=== PATIENT | female | born 1980 | race American Indian/Alaskan Native ===

== ENCOUNTER 2017-06-06 07:00 | Inpatient (IN) | payer OTHER ==
--- NOTE | 2017-06-06 12:52 | Anesthesia Consultation ---
Anesthesia Consult and Med Hx Date of service: 06/06/17 - Airway Anesthetic Teeth Evaluation: Good ROM Head & Neck: Adequate Mental/Hyoid Distance: Adequate Mallampati Class: Class II Intubation Access Assessment: Good - Pulmonary Exam CTA: Yes - Cardiac Exam Cardiac Exam: No Murmur - Pre-Operative Health Status ASA Pre-Surgery Classification: ASA2 Proposed Anesthetic Plan: General Nerve Block: tap - Pulmonary Hx Smoking: Yes (past hx) Hx Sleep Apnea: Yes (No CPAP) - Central Nervous System Hx Psychiatric Problems: No - Hematic Hx Sickle Cell Disease: Yes (Trait only) - Other Systems Hx Alcohol Use: Yes (occas) Hx Cancer: No
[2017-06-06 12:55] LABS: Basophils # (Auto) 0.2 K/mm3 (0.0-0.1); Basophils % (Auto) 2.1 % (0.0-1.8); Eosinophils # (Auto) 0.1 K/mm3 (0.0-0.4); Eosinophils % (Auto) 1.2 % (0.0-4.3); Hematocrit 32.1 % (30.3-42.9); Hemoglobin 9.9 gm/dl (10.1-14.3); Lymphocytes # (Auto) 2.1 K/mm3 (1.2-5.4); Lymphocytes % (Auto) 30.2 % (13.4-35.0); Mean Corpuscular HGB Conc 31 % (30-34); Monocytes # (Auto) 0.5 K/mm3 (0.0-0.8); Monocytes % (Auto) 7.7 % (0.0-7.3); Platelet Count 359 K/mm3 (140-440); Red Blood Count 5.25 M/mm3 (3.65-5.03); Red Cell Distribution Width 19.4 % (13.2-15.2)
[2017-06-06 12:58] LABS: Mean Corpuscular Hemoglobin 19 pg (28-32); Mean Corpuscular Volume 61 fl (79-97)
[2017-06-07] MEDS ORDERED: Vasostrict IV ONE
[2017-06-07] MEDS ORDERED: NACL 0.9% IV ONE
[2017-06-07] MEDS ORDERED: NACL BACTERIOSTATIC INFILTRATI ONE (09:35)
--- NOTE | 2017-06-07 09:54 | History and Physical Report ---
History of Present Illness Date of examination: 06/07/17 Date of admission: 06/07/17 09:12 Chief complaint: Prolonged heavy vaginal bleeding History of present illness: Pt is a 36yo BF LMP 05/19/17 presents for surgical evaluation of symptomatic uterine fibroids. Pelvic u/s showed an enlarged uterus 12.3 x 9 x 8cm with 6 fibroids. 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 Family/Genetic History: diabetes, hypertension Social history: no significant social history, Medications and Allergies Allergies Allergy/AdvReac Type Severity Reaction Status Date / Time No Known Allergies Allergy Unverified 06/01/17 16:03 Home Medications Medication Instructions Recorded Confirmed Last Taken Type Ibuprofen 800 mg PO PRN PRN 06/01/17 06/01/17 Unknown History Active Meds: Active Medications Famotidine (Pepcid) 20 mg PO PREOP NR Stop: 06/07/17 21:00 Hydromorphone HCl (Dilaudid) 0.5 mg IV Q10MIN PRN PRN Reason: Pain , Severe (7-10) Stop: 06/07/17 18:00 Lactated Ringer's (Lactated Ringers) 1,000 mls @ 100 mls/hr IV DIRECT HEBER Midazolam HCl (Versed) 2 mg IV PREOP NR Stop: 06/07/17 23:59 Ondansetron HCl (Zofran) 4 mg IV ONCE PRN PRN Reason: Nausea And Vomiting Stop: 06/07/17 18:00 Review of Systems All systems: negative - Vital Signs Vital signs: Vital Signs Temp Pulse Resp BP 98.2 F 80 18 138/80 06/06/17 12:30 06/06/17 12:30 06/06/17 12:30 06/06/17 12:30 Temp Pulse Resp BP Pulse Ox 98.2 F 80 18 138/80 06/06/17 12:30 06/06/17 12:30 06/06/17 12:30 06/06/17 12:30 - Physical Exam Breasts: Positive: deferred Cardiovascular: Regular rate Lungs: Positive: Clear to auscultation Abdomen: Positive: normal appearance Genitourinary (Female): Positive: normal external genitalia Uterus: Positive: enlarged Extremities: Positive: normal Results Result Diagrams: 06/06/17 12:35 Abnormal lab results 06/06/17 Range/Units 12:35 RBC 5.25 H (3.65-5.03) M/mm3 Hgb 9.9 L (10.1-14.3) gm/dl MCV 61 L (79-97) fl MCH 19 L (28-32) pg RDW 19.4 H (13.2-15.2) % [place] % (Auto) 7.7 H (0.0-7.3) % Baso % (Auto) 2.1 H (0.0-1.8) % Baso # 0.2 H (0.0-0.1) K/mm3 All other labs normal. Ultrasound: report reviewed Assessment and Plan - Patient Problems (1) Uterine fibroid Onset Date: 06/07/17 Current Visit: Yes Status: Acute Qualifiers: Uterine leiomyoma location: intramural and submucous Qualified Code(s): D25.1 - Intramural leiomyoma of uterus; D25.0 - Submucous leiomyoma of uterus Plan to address problem: A: Symptomatic uterine fibroids Menorrhagia - most likely due to uterine fibroids Anemia - due to menorrhagia P: Admit for an Abdominal Myomectomy (2) Menorrhagia with irregular cycle Onset Date: 06/07/17 Current Visit: Yes Status: Acute
[2017-06-07] MEDS ORDERED: PEPCID PO NR (10:00)
[2017-06-07] MEDS ORDERED: LACTATED RINGERS 1,000 ML IV SCH (10:00)
[2017-06-07] MEDS ORDERED: VERSED IV NR ×2 (10:00→13:00)
[2017-06-07] MEDS ORDERED: ZOFRAN IV PRN (10:00)
[2017-06-07] MEDS ORDERED: ANCEF/STERILE WATER 2 GM/20 ML 2 GM/20 ML SYRINGE IV NR (10:30)
[2017-06-07] MEDS ORDERED: DIPRIVAN 10 MG/ML IV ONE (11:30)
[2017-06-07] MEDS ORDERED: SUBLIMAZE ONE (11:31)
[2017-06-07] MEDS ORDERED: ACD-A 0 ML IV ONE (12:06)
[2017-06-07] MEDS ORDERED: NACL 0.9% 100 ML ONE (12:07)
[2017-06-07] MEDS ORDERED: METHYLENE BLUE ONE (12:07)
[2017-06-07] MEDS ORDERED: Vasostrict ONE (12:07)
--- NOTE | 2017-06-07 12:20 | Anesthesia Day of Surgery ---
Anesthesia Day of Surgery - Day of Surgery Patient Examined: Yes Patient H&P Reviewed: Yes Patient is NPO: Yes
--- NOTE | 2017-06-07 12:20 | Anesthesia Consultation ---
Anesthesia Consult and Med Hx Date of service: 06/07/17 - Airway Anesthetic Teeth Evaluation: Good ROM Head & Neck: Adequate Mental/Hyoid Distance: Adequate Mallampati Class: Class III Intubation Access Assessment: Good - Pulmonary Exam CTA: Yes - Cardiac Exam Cardiac Exam: RRR - Pre-Operative Health Status ASA Pre-Surgery Classification: ASA3 Proposed Anesthetic Plan: General - Pulmonary Hx Smoking: Yes (past hx) Hx Sleep Apnea: Yes (No CPAP) - Central Nervous System Hx Psychiatric Problems: No - Hematic Hx Sickle Cell Disease: Yes (Trait only) - Other Systems Hx Alcohol Use: Yes (occas) Hx Cancer: No
[2017-06-07] MEDS ORDERED: XYLOCAINE MPF 2% ONE (13:04)
[2017-06-07] MEDS ORDERED: ZOFRAN ONE (13:04)
[2017-06-07] MEDS ORDERED: ROBINUL ONE (13:04)
[2017-06-07] MEDS ORDERED: NEOSTIGMINE ONE (13:04)
[2017-06-07] MEDS ORDERED: ZEMURON IV ONE (13:04)
--- NOTE | 2017-06-07 14:53 | Operative Report ---
Operative Report Operative Report: Date of procedure: 06/07/2017 Pre-operative diagnosis: 1. Symptomatic uterine fibroids 2. Menorrhagia 3. Anemia due to chronic blood loss Post-operative diagnosis: Same Procedure name(s): Abdominal myomectomy Surgeon: Tyrese Herron MD Bee Breeder: None Anesthesia: Gen. endotracheal intubation EBL: 400 mL's Findings: A 12-14 week size multi-myomatous uterus. Edematous fallopian tubes bilaterally. Bilaterally cystic ovaries. Procedure: After the patient was correctly identified, she was prepped and draped in the usual sterile fashion and placed in the dorsolithotomy position. The skin knife was used to make a transverse skin incision, and the incision extended down to layer of fascia. It was nicked in the midline and extended laterally using the Bovie cautery. The rectus muscle was dissected off the rectus fascia both superiorly and inferiorly. The rectus bellies in the midline and the peritoneum was entered under direct visualization. Exploration of the pelvic organs found the uterus to be 12-14 weeks' size with multiple fibroids, with small fibroids within the proximal portion of the left fallopian tube. Both fallopian tubes also edematous, and ovaries appeared to be normal with a few small cysts. Next the bowels were packed back, and the uterus was lifted from the pelvic cavity. Pitressin solution was used to infiltrate the serosal layer overlying the fibroids, and the Bovie was then used to incise the serosal layer into the myometrium, and several fibroids removed using both sharp and blunt dissection. The largest fibroid was approximately 5 x 5 cms, the smallest about 1 cm, and approximately 12 fibroids removed in this fashion and sent to pathology. The uterine defect was then obliterated using several sutures of 2-0 Monocryl suture, and the serosa was re- approximated using 2-0 Monocryl suture in running interlocking fashion. The 4 serosal incisions were closed in similar fashion. Copious amounts of irrigation was then performed, and then both Tisseel sealant was used to achieve excellent hemostasis. Interceed was then placed over the serosal layer. At this point the procedure was considered complete. The uterus was returned to his normal anatomical position and the peritoneum was re- approximated using 0 Vicryl suture in a running interlocking fashion. The rectus muscles also loosely re-approximated using 0 Vicryl suture in a figure-of -eight configuration. The fascia was closed using 0 Vicryl suture in a running locking fashion, the subcutaneous layer was made hemostatic using Bovie cautery and the Tisseel sealant, and the skin edges re-approximated using 3-0 Monocryl suture in a sub-cuticular fashion. The patient tolerated the procedure well and was transferred to recovery in stable condition.
[2017-06-07] MEDS ORDERED: PERCOCET 5/325 PO PRN (14:54)
[2017-06-07] MEDS ORDERED: MILK OF MAGNESIA PO PRN (14:54)
[2017-06-07] MEDS ORDERED: BENADRYL IV PRN (14:58)
[2017-06-07] MEDS ORDERED: REGLAN IV PRN (14:58)
[2017-06-07] MEDS ORDERED: NARCAN 0.4 MG/1 ML IV PRN (14:58)
[2017-06-07] MEDS ORDERED: ANCEF/NS 1 GM/50 ML 1 GM/50 ML BAG IV SCH (15:00)
[2017-06-07] MEDS ORDERED: NACL 0.9% 1000 ML 1,000 ML IV SCH (15:00)
[2017-06-07] MEDS ORDERED: MORPHINE PCA 30MG/30ML IV SCH (15:00)
[2017-06-07] MEDS: DILAUDID IV PRN ×2 (15:07→15:30)
--- NOTE | 2017-06-07 15:42 | Post Anesthesia Evaluation ---
- Post Anesthesia Evaluation Patient Participated: Yes Airway Patent: Yes Stable Respiratory Function: Yes Nausea/Vomiting: No Temp > 96.8F: Yes Pain Manageable: Yes Adequeate Hydration: Yes Anesthesia Complications: No
[2017-06-07] MEDS: D5LR 1,000 ML IV SCH (18:02)
[2017-06-07] MEDS: ceFAZolin 1 GM in NACL 0.9% 20 ML IV SCH (22:23)
[2017-06-07] MEDS: COLACE PO SCH (22:23)
[2017-06-07] MEDS: TORADOL IV SCH (23:22)
[2017-06-08] MEDS: TORADOL IV SCH ×5 (00:22→23:03)
[2017-06-08] MEDS: D5LR 1,000 ML IV SCH ×2 (02:45→05:53)
[2017-06-08 05:15] LABS: Hemoglobin 7.6 gm/dl (10.1-14.3)
[2017-06-08] MEDS: ceFAZolin 1 GM in NACL 0.9% 20 ML IV SCH (05:44)
[2017-06-08] MEDS: TYLENOL PO PRN ×2 (05:45→23:33)
[2017-06-08] MEDS: NORCO 5/325 PO PRN (06:36)
--- NOTE | 2017-06-08 08:50 | Progress Note ---
Assessment and Plan - Patient Problems (1) Uterine fibroid Onset Date: 06/07/17 Current Visit: Yes Status: Resolved Qualifiers: Uterine leiomyoma location: intramural and submucous Qualified Code(s): D25.1 - Intramural leiomyoma of uterus; D25.0 - Submucous leiomyoma of uterus (2) Menorrhagia with irregular cycle Onset Date: 06/07/17 Current Visit: Yes Status: Resolved (3) Status post myomectomy Onset Date: 06/08/17 Current Visit: Yes Status: Resolved Plan to address problem: A: S/P Abdominal myomectomy - POD #1 Doing well Acute blood loss anemia - stable Asymptomatic anemia - stable P: Continue RPOC Anticipate discharge in 24-48hrs (4) Acute blood loss anemia Onset Date: 06/08/17 Current Visit: Yes Status: Resolved Subjective - Subjective Date of service: 06/08/17 Principal diagnosis: s/p Abdominal myomectomy - POD #1 Interval history: Pt is feeling well s/p an Abdominal myomectomy. She is tolerating a liquid diet without nausea or vomiting. Patient reports: appetite normal, voiding normally, pain well controlled, ambulating normally, no dizzy ambulation, no flatus, no nauseated Objective - Vital Signs Latest vital signs: Vital Signs Temp Pulse Resp Resp BP BP Pulse Ox 06/08/17 07:01 20 06/08/17 05:48 99.5 F 92 H 20 115/65 100 06/08/17 02:06 99.9 F H 96 H 20 110/61 97 06/07/17 20:45 99.4 F 98 H 20 134/78 100 06/07/17 18:10 18 06/07/17 16:15 97.7 F 80 16 16 148/79 98 06/07/17 16:00 99.5 F 74 14 155/85 100 06/07/17 15:45 79 21 152/83 100 06/07/17 15:30 78 19 157/77 100 06/07/17 15:15 78 18 161/89 100 06/07/17 15:10 74 23 166/90 100 06/07/17 15:07 18 06/07/17 15:05 75 20 153/85 100 06/07/17 15:00 80 20 156/84 100 06/07/17 14:53 98.8 F 80 20 128/79 100 06/07/17 10:01 98.0 F 74 18 138/83 06/07/17 09:15 98.0 F 74 18 138/83 Intake and Output 06/07/17 06/08/17 06/08/17 22:59 06:59 14:59 Intake Total 2391.667 Output Total 300 Balance -300 2391.667 Intake: IV 2391.667 D5lr 1,000 ml @ 125 mls/ 1391.667 hr IV DIRECT HEBER Rx#: [id number] Lactated Ringers 1,000 ml 1000 @ 100 mls/hr IV DIRECT HEBER Rx#:[id number] Output: Urine 300 Uretheral (Will) 150 Other: Voiding Method Indwelling Catheter # Voids Void 1,000 - Exam Breasts: Present: deferred Cardiovascular: Present: Regular rate Lungs: Present: Clear to auscultation Abdomen: Present: normal appearance, soft Incision: Present: normal, dry, intact, dressed - Labs Labs: Abnormal lab results 06/08/17 Range/Units 04:27 Hgb 7.6 L (10.1-14.3) gm/dl Hct 25.0 L D (30.3-42.9) % Laboratory Tests 06/06/17 06/06/17 06/07/17 12:35 12:35 09:45 WBC 7.1 RBC 5.25 H Hgb 9.9 L Hct 32.1 MCV 61 L MCH 19 L MCHC 31 RDW 19.4 H Plt Count 359 Lymph % (Auto) 30.2 [place] % (Auto) 7.7 H Eos % (Auto) 1.2 Baso % (Auto) 2.1 H Lymph # 2.1 [place] # 0.5 Eos # 0.1 Baso # 0.2 H Seg Neutrophils % 58.8 Seg Neutrophils # 4.2 HCG, Qual Negative Blood Type O POSITIVE Antibody Screen Negative 06/08/17 04:27 WBC RBC Hgb 7.6 L Hct 25.0 L D MCV MCH MCHC RDW Plt Count Lymph % (Auto) [place] % (Auto) Eos % (Auto) Baso % (Auto) Lymph # [place] # Eos # Baso # Seg Neutrophils % Seg Neutrophils # HCG, Qual Blood Type Antibody Screen
[2017-06-08] MEDS: COLACE PO SCH ×2 (10:52→23:03)
[2017-06-09] MEDS: TORADOL IV SCH (03:58)
--- NOTE | 2017-06-09 09:13 | Progress Note ---
Assessment and Plan - Patient Problems (1) Uterine fibroid Onset Date: 06/07/17 Current Visit: Yes Status: Resolved Qualifiers: Uterine leiomyoma location: intramural and submucous Qualified Code(s): D25.1 - Intramural leiomyoma of uterus; D25.0 - Submucous leiomyoma of uterus (2) Menorrhagia with irregular cycle Onset Date: 06/07/17 Current Visit: Yes Status: Resolved (3) Status post myomectomy Onset Date: 06/08/17 Current Visit: Yes Status: Resolved Plan to address problem: A: S/P Abdominal myomectomy - POD #2 Doing well Acute blood loss anemia - stable Asymptomatic anemia - stable P: May go home today. (4) Acute blood loss anemia Onset Date: 06/08/17 Current Visit: Yes Status: Resolved Subjective - Subjective Date of service: 06/09/17 Principal diagnosis: s/p Abdominal myomectomy - POD #2 Interval history: Pt is feeling well s/p an Abdominal myomectomy. She is tolerating a reg diet without nausea or vomiting, ambulating and voiding without difficulty. Patient reports: appetite normal, voiding normally, pain well controlled, flatus , bowel movement, ambulating normally, no dizzy ambulation, no nauseated Objective - Vital Signs Latest vital signs: Vital Signs Temp Pulse Resp Resp BP BP Pulse Ox 06/09/17 05:24 20 06/09/17 05:00 98.5 F 93 H 16 109/65 06/09/17 03:58 20 06/09/17 00:43 99.9 F H 98 H 16 108/63 99 06/09/17 00:33 20 06/08/17 23:33 20 06/08/17 23:03 20 06/08/17 21:03 20 06/08/17 21:00 20 06/08/17 20:23 98.7 F 94 H 16 119/61 99 06/08/17 17:03 92 H 100 06/08/17 17:00 99.3 F 89 18 140/83 06/08/17 11:50 85 100 Intake and Output 06/08/17 06/09/17 06/09/17 22:59 06:59 14:59 Intake Total 480 Output Total 601 Balance -121 Intake: Oral 480 Output: Urine 601 Other: Total, Intake Amount 480 Voiding Method Toilet # Voids 1 Void 2 # Bowel Movements 0 - Exam Breasts: Present: deferred Cardiovascular: Present: Regular rate Lungs: Present: Clear to auscultation Abdomen: Present: normal appearance, soft Extremities: Present: normal Incision: Present: normal, dry, intact
[2017-06-09 09:56] VITALS: BP 152/78
[2017-06-09] MEDS: COLACE PO SCH (11:29)
--- NOTE | 2017-06-09 14:05 | Discharge Summary ---
Providers - Providers Date of Admission: 06/07/17 09:12 Date of discharge: 06/09/17 Attending physician: SIMONE RODNEY Primary care physician: MUSHTAQ OSBORN Hospitalization Reason for admission: other (Symptomatic uterine fibroids; Menorrhagia; Chronic blood loss anemia) Procedure: other (Abdominal myomectomy) Laceration: none Incision: normal, dry, intact Other procedures: none complications: none Discharge diagnosis: other (s/p Abdominal myomectomy) Hospital course: Pt is a 36yo BF LMP 05/19/17 who presented for surgical evaluation of symptomatic uterine fibroids. Pelvic u/s showed an enlarged uterus 12.3 x 9 x 8cm with 6 fibroids. She desires future fertility, and thus underwent an uncomplicated Abdominal myomectomy. By POD #2 she was tolerating a reg diet without nausea or vomiting, ambulating and voiding without difficulty, and therefore was discharged to home on POD #2 in stable condition. Condition at discharge: Good Disposition: DC-01 TO HOME OR SELFCARE - Discharge Diagnoses (1) Uterine fibroid Status: Resolved Qualifiers: Uterine leiomyoma location: intramural and submucous Qualified Code(s): D25.1 - Intramural leiomyoma of uterus; D25.0 - Submucous leiomyoma of uterus (2) Menorrhagia with irregular cycle Status: Resolved (3) Status post myomectomy Status: Resolved (4) Acute blood loss anemia Status: Resolved Plan - Discharge Medications Prescriptions: HYDROcodone/APAP 5-325 [[place] 5-325 mg TAB] 1 each PO Q6HR PRN #30 tablet PRN Reason: Pain, Moderate (4-6) Ibuprofen 800 mg PO Q8HR PRN #30 tablet PRN Reason: Pain - Provider Discharge Summary Activity: routine, no sex for 6 weeks, no heavy lifting 4 weeks, no strenuous exercise Diet: routine Instructions: routine Additional instructions: [] Smoking cessation referral if applicable(refer to patient education folder for contact #) [] Refer to [facility] Booklet Call your doctor immediately for: * Fever > 100.5 * Heavy vaginal bleeding ( >1 pad per hour) * Severe persistent headache * Shortness of breath * Reddened, hot, painful area to leg or breast * Drainage or odor from incision. * Keep incision clean and dry at all times and follow doctor's instructions regarding bathing/showering - Follow up plan Follow up: MUSHTAQ OSBORN MD [Primary Care Provider] - 7 Days SIMONE RODNEY MD [Staff Physician] - 14 Days
[2017-06-09] MEDS: NORCO 5/325 PO PRN (14:10)
== END 2017-06-09 14:49 | disposition home or self-care (01) | DRG 742 ==
LOC: 3A 06-07 09:12 → OB 06-07 15:09
PROVIDERS: ADMIT Obstetrics & Gynecology; ATTEND Obstetrics & Gynecology
PROC: 0UB90ZZ Excision of Uterus, Open Approach (ICD-10-PCS; principal; 2017-06-07)
DX: D25.0 Submucous leiomyoma of uterus (principal); D62 Acute posthemorrhagic anemia; N92.0 Excessive and frequent menstruation with regular cycle; D25.1 Intramural leiomyoma of uterus; Z83.3 Family history of diabetes mellitus; Z82.49 Family history of ischemic heart disease and other diseases of the circulatory system; Z79.899 Other long term (current) drug therapy
CPT/HCPCS: 36415; 84703; 85014; 85018; 85025; 86850; 86900; 86901; 88305; C1765; C9250; J0690; J1170; J1885; J2250; J2270; J2405; J2704; J2710; J2765; J3010; J7120; J7121; Q9968